=== PATIENT | female | born 1955 | race Caucasian/White ===

== ENCOUNTER → 2017-10-08 | Outpatient (CLI) | payer MEDICARE, OTHER | LOC: COL.RAD 13:35 | DX: R16.0 Hepatomegaly, not elsewhere classified (principal); S39.82XA Other specified injuries of lower back, initial encounter; R06.09 Other forms of dyspnea; R63.4 Abnormal weight loss | CPT/HCPCS: Q9967 ==

== ENCOUNTER 2017-11-03 13:46 | Day surgery (SDC) | payer MEDICARE, OTHER ==
[~2017-11-03] VITALS: Ht 162.6 cm; Wt 45.5 kg
[2017-11-03] MEDS ORDERED: PRILOSEC 20MG20 MG PO (14:07)
[2017-11-03 14:08] VITALS: BP 125/87; PULSE 103; TEMP 98.2
[2017-11-03 15:45] VITALS: BP 123/86; PULSE 89
[2017-11-03 16:00] VITALS: BP 120/73; PULSE 83
[2017-11-03 16:30] VITALS: BP 111/54; PULSE 94
== END 2017-11-03 16:40 | disposition home or self-care (01) ==
LOC: SDCO 13:46
DX: K21.9 Gastro-esophageal reflux disease without esophagitis (principal); K25.7 Chronic gastric ulcer without hemorrhage or perforation; R10.13 Epigastric pain; K63.4 Enteroptosis; I45.6 Pre-excitation syndrome; F17.210 Nicotine dependence, cigarettes, uncomplicated; Z90.710 Acquired absence of both cervix and uterus; Z88.8 Allergy status to other drugs, medicaments and biological substances
CPT/HCPCS: J2250; J3010; J7030

== ENCOUNTER → 2019-02-23 | Outpatient (CLI) | payer MEDICARE, OTHER ==
[~2019-02-23] MED LIST: PRILOSEC 20MG20 MG PO
== END ==
LOC: MC.RAD 07:15
DX: Z12.31 Encounter for screening mammogram for malignant neoplasm of breast (principal)

== ENCOUNTER 2020-08-22 19:36 | Emergency (ER) | payer MEDICARE, OTHER ==
[~2020-08-22] VITALS: Ht 162.6 cm; Wt 50.0 kg
[2020-08-22 19:39] VITALS: TEMP 97.2
[2020-08-22 22:39] VITALS: BP 145/110; PULSE 93
== END 2020-08-22 22:48 | disposition home or self-care (01) ==
LOC: COL.ER 19:36
DX: T18.128A Food in esophagus causing other injury, initial encounter (principal); F17.210 Nicotine dependence, cigarettes, uncomplicated
CPT/HCPCS: J2060; J2704; J7030

== ENCOUNTER → 2021-03-24 | Outpatient (CLI) | payer MEDICARE, OTHER | LOC: MC.RAD 07:15 | DX: Z12.31 Encounter for screening mammogram for malignant neoplasm of breast (principal) ==

== ENCOUNTER → 2022-06-05 | Outpatient (CLI) | payer MEDICARE, OTHER | LOC: COL.RAD 08:48 | DX: H90.A31 Mixed conductive and sensorineural hearing loss, unilateral, right ear with restricted hearing on the contralateral side (principal) | CPT/HCPCS: A9575 ==